=== PATIENT | female | born 1980 | race African-American/Black ===

== ENCOUNTER 2016-08-09 23:01 | Emergency (ER) | payer OTHER ==
[~2016-08-09] VITALS: Ht 172.7 cm; Wt 63.5 kg
--- NOTE | 2016-08-09 23:10 | NUR ---
To bed 8 a 36 yo female bibself with c/o dizziness x1 day, no n/v. Patient is aaox4, ambulatory with steady gait. Upon initial assessment in er, patient denies dizziness at the moment and said, "i feel dizzy from time to time, right now it's not happening." Initiated safety measures. VSS. Awaiting for er md moreno.
[2016-08-09] MEDS ORDERED: MECLIZINE HCL 25 MG TABLET ONE (23:12)
[2016-08-09] MEDS ORDERED: IV NS 0.9% 1,000 ML ONE (23:12)
[2016-08-09] MEDS ORDERED: IV SET PRIMARY 1 EA INFUS.SET MC ONE (23:12)
--- NOTE | 2016-08-09 23:24 | NUR ---
started a saline lock on the right ac g20, blood drawn and sent to lab.
[2016-08-09] MEDS ORDERED: IV NS 0.9% 1,000 ML BAG IV ONE (23:30)
[2016-08-09] MEDS ORDERED: MECLIZINE HCL 12.5 MG TABLET PO ONE (23:30)
[2016-08-09 23:38] LABS: BASOPHILS % (AUTO) 0.4 % (0.0-2.0); EOSINOPHILS # (AUTO) 0.1 /CMM (0.0-0.7); EOSINOPHILS % (AUTO) 1.6 % (0.0-6.0); HEMATOCRIT 42 % (33-45); HEMOGLOBIN 14.1 g/dL (11.5-14.8); LYMPHOCYTES # (AUTO) 3.4 /CMM (0.8-4.8); LYMPHOCYTES % (AUTO) 42.6 % (20.0-44.0); MEAN CORPUSCULAR HEMOGLOBIN 32 PG (26.0-33.0); MEAN CORPUSCULAR HGB CONC 34 g/dl (31.0-36.0); MEAN CORPUSCULAR VOLUME 93 fL (82-100); MONOCYTES # (AUTO) 0.6 /CMM (0.1-1.30); MONOCYTES % (AUTO) 7.6 % (2.0-12.0); NEUTROPHILS # (AUTO) 3.9 /CMM (1.8-8.9); NEUTROPHILS % (AUTO) 47.8 % (43.0-81.0); PLATELET COUNT (AUTO) 255 /CMM (150-450); RDW COEFFICIENT OF VARIATION 12.4 (11.5-15.0); RED BLOOD CELL COUNT(AUTO) 4.47 MIL/uL (4.0-5.2); WHITE BLOOD COUNT (AUTO) 8.1 K/uL (4.3-11.0)
[2016-08-09 23:41] LABS: APPEARANCE,URINE CLEAR (CLEAR); BILIRUBIN,URINE NEGATIVE (NEGATIVE); BLOOD, URINE NEGATIVE Ery/uL (NEGATIVE); KETONES,URINE NEGATIVE (NEGATIVE); LEUKOCYTE ESTERASE ,URINE NEGATIVE (NEGATIVE); NITRITE, URINE NEGATIVE (NEGATIVE); PROTEIN,URINE NEGATIVE (NEGATIVE); UGLUCOSE NEGATIVE (NEGATIVE); UROBILINOGEN,URINE 0.2 EU/dL (0.2)
[2016-08-09 23:47] LABS: CALCIUM, SERUM 9.2 mg/dL (8.5-10.1); CREATININE 0.8 mg/dL (0.6-1.3); POTASSIUM 3.6 mmol/L (3.5-5.1)
[2016-08-09 23:49] LABS: COLOR,URINE STRAW (YELLOW); PREGNANCY TEST URINE QUAL NEGATIVE (NEGATIVE)
[2016-08-09 23:56] LABS: ALBUMIN 4.3 g/dL (3.4-5.0); BILIRUBIN,DIRECT 0.1 mg/dL (0.0-0.2); BILIRUBIN,TOTAL 0.4 mg/dL (0.2-1.0); TOTAL PROTEIN, SERUM 8.3 g/dL (6.4-8.2)
--- NOTE | 2016-08-10 00:05 | NUR ---
Note petey in EDM - 08/10/16 at 0031 by DARYN performed straight cath aseptically per Dr Cole's verbal order, patient omar procedure well. Drained about 70 cc of clear yellow urine. Sample collected and sent to lab.
--- NOTE | 2016-08-10 00:58 | NUR ---
IV removed. Catheter intact and site benign. Pressure and 4x4 applied to site. No bleeding noted. Patient discharged to home in stable condition. Written and verbal after care instructions given. Patient verbalizes understanding of instruction. Patient is ambulatory with a steady gait.
[2016-08-10 01:24] VITALS: BP 141/103
== END 2016-08-10 01:26 | disposition home or self-care (01) ==
LOC: ER 23:03
DX: R42 Dizziness and giddiness (principal)
CPT/HCPCS: 36415; 70450; 80048; 80076; 81001; 84703; 85025; 96360; 99285; A4606; J7030; J8597; Z7610; 81000-TC

== ENCOUNTER 2016-09-28 23:15 | Emergency (ER) | payer OTHER ==
[~2016-09-28] VITALS: Ht 170.2 cm; Wt 66.7 kg
--- NOTE | 2016-09-28 23:49 | NUR ---
PT AMBULATED TO THE BATHROOM WITH A STEADY GAIT.
[2016-09-28] MEDS ORDERED: IV NS 0.9% 1,000 ML IV ONE (23:51)
[2016-09-28] MEDS ORDERED: IV SET PRIMARY 1 EA INFUS.SET MC ONE (23:59)
[2016-09-28] MEDS ORDERED: IV NS 0.9% 1,000 ML ONE (23:59)
--- NOTE | 2016-09-28 23:59 | NUR ---
18G IV STARTED IN LAC. BLOOD DRAWN AND SENT TO LAB.
[2016-09-29 00:33] LABS: BASOPHILS # (AUTO) 0.1 /CMM (0.0-0.2); BASOPHILS % (AUTO) 0.5 % (0.0-2.0); EOSINOPHILS # (AUTO) 0.1 /CMM (0.0-0.7); EOSINOPHILS % (AUTO) 0.7 % (0.0-6.0); HEMATOCRIT 41 % (33-45); HEMOGLOBIN 13.7 g/dL (11.5-14.8); LYMPHOCYTES # (AUTO) 2.8 /CMM (0.8-4.8); LYMPHOCYTES % (AUTO) 28.2 % (20.0-44.0); MEAN CORPUSCULAR HEMOGLOBIN 32 PG (26.0-33.0); MEAN CORPUSCULAR HGB CONC 34 g/dl (31.0-36.0); MEAN CORPUSCULAR VOLUME 94 fL (82-100); MONOCYTES # (AUTO) 0.6 /CMM (0.1-1.30); NEUTROPHILS # (AUTO) 6.4 /CMM (1.8-8.9); NEUTROPHILS % (AUTO) 64.6 % (43.0-81.0); PLATELET COUNT (AUTO) 270 /CMM (150-450); RDW COEFFICIENT OF VARIATION 12.7 (11.5-15.0); RED BLOOD CELL COUNT(AUTO) 4.31 MIL/uL (4.0-5.2); WHITE BLOOD COUNT (AUTO) 9.8 K/uL (4.3-11.0)
[2016-09-29 00:51] LABS: TROPONIN I < 0.017 ng/mL (0.00-0.056)
[2016-09-29 00:52] LABS: CALCIUM, SERUM 9.2 mg/dL (8.5-10.1); CARBON DIOXIDE 30 mmol/L (21-32); CHLORIDE 101 mmol/L (98-107); CREATININE 0.7 mg/dL (0.6-1.3); GLUCOSE 102 mg/dL (74-106); POTASSIUM 3.7 mmol/L (3.5-5.1); SODIUM SERUM 139 mmol/L (136-145); UREA NITROGEN, BLOOD 11 mg/dL (7-18)
[2016-09-29 00:58] LABS: ALBUMIN 4.2 g/dL (3.4-5.0); ALKALINE PHOSPHATASE 67 U/L (46-116); ASPARTATE AMINOTRANSFERASE 19 U/L (15-37); B-TYPE NATRIURETIC PEPTIDE 74 PG/ML (0-125); BILIRUBIN,DIRECT 0.1 mg/dL (0.0-0.2); BILIRUBIN,TOTAL 0.3 mg/dL (0.2-1.0)
[2016-09-29 01:19] LABS: ALANINE AMINOTRANSFERASE 42 U/L (12-78)
[2016-09-29 01:55] VITALS: BP 115/69
--- NOTE | 2016-09-29 01:56 | NUR ---
Patient discharged to home in stable condition. Written and verbal after care instructions given. Patient verbalizes understanding of instruction.IV removed. Catheter intact and site benign. Pressure and 4x4 applied to site. No bleeding noted. vss. ambulatory with steady gait. no further complaints.
== END 2016-09-29 01:55 | disposition home or self-care (01) ==
LOC: ER 23:19
DX: Z00.8 Encounter for other general examination (principal)
CPT/HCPCS: 36415; 71010-TC; 80048-TC; 80076-TC; 83880; 84484-TC; 84703-TC; 85025-TC; A4606; J7030; Z7610